=== PATIENT | female | born 1990 | race Caucasian/White ===

== ENCOUNTER 2018-02-07 12:32 | Emergency (ER) | payer OTHER ==
[~2018-02-07] VITALS: Ht 177.8 cm; Wt 66.2 kg
[2018-02-07 12:47] VITALS: Ht 177.8 cm; Wt 66.2 kg
[2018-02-07 13:52] VITALS: BP 118/69
== END 2018-02-07 13:52 | disposition home or self-care (01) ==
LOC: ED 12:32
DX: R11.10 Vomiting, unspecified (principal); R19.7 Diarrhea, unspecified
CPT/HCPCS: Q0162

== ENCOUNTER 2018-04-02 08:26 | Emergency (ER) | payer OTHER ==
[~2018-04-02] VITALS: Ht 177.8 cm; Wt 69.4 kg
[2018-04-02 08:31] VITALS: Ht 177.8 cm; Wt 69.4 kg
[2018-04-02 10:51] VITALS: BP 118/71
== END 2018-04-02 10:50 | disposition home or self-care (01) ==
LOC: ED 08:26
DX: S39.011A Strain of muscle, fascia and tendon of abdomen, initial encounter (principal); X50.9XXA Other and unspecified overexertion or strenuous movements or postures, initial encounter; Y93.B9 Activity, other involving muscle strengthening exercises; Y92.39 Other specified sports and athletic area as the place of occurrence of the external cause; Y99.8 Other external cause status